=== PATIENT | female | born 1985 | race Caucasian/White ===

== ENCOUNTER 2018-08-21 00:50 | Emergency (ER) | payer SELFPAY ==
[~2018-08-21] VITALS: Ht 165.1 cm; Wt 53.5 kg
--- NOTE | 2018-08-21 01:18 | NUR ---
Pt came in c/o bilateral lower back pain, 5/10 on scale, nausea. States she had abdominal pain earlier but denies it at this time. She is A, O/4, moves all extremities without difficulty, on RA, in no apparent distress. Awaiting to be seen by MD at .
--- NOTE | 2018-08-21 01:23 | NUR ---
Urine sample sent to lab.
[2018-08-21] MEDS ORDERED: IBUPROFEN 400 MG TABLET ONE (01:25)
[2018-08-21] MEDS ORDERED: IBUPROFEN 400 MG TABLET PO ONE (01:30)
[2018-08-21 01:36] LABS: APPEARANCE,URINE SL CLOUDY (CLEAR); BILIRUBIN,URINE NEGATIVE (NEGATIVE); BLOOD, URINE 1+ Ery/uL (NEGATIVE); COLOR,URINE YELLOW (YELLOW); KETONES,URINE 1+ (NEGATIVE); LEUKOCYTE ESTERASE ,URINE NEGATIVE (NEGATIVE); NITRITE, URINE NEGATIVE (NEGATIVE); PROTEIN,URINE NEGATIVE (NEGATIVE); UGLUCOSE NEGATIVE (NEGATIVE); UROBILINOGEN,URINE 0.2 EU/dL (0.2)
--- NOTE | 2018-08-21 01:55 | NUR ---
Pt states her back pain and abdominal discomfort have subsided from 12/20 earlier to 08/22 now.
[2018-08-21 02:00] LABS: BACTERIA,URINE Few /HPF (None Seen); MUCUS,URINE Few /LPF (None Seen); RBC,URINE 0-2 /HPF (0-2); SQUAMOUS EPITHELIAL CELL,UR Few /HPF (None Seen)
[2018-08-21 02:10] VITALS: BP 127/69
--- NOTE | 2018-08-21 02:11 | NUR ---
Patient discharged to home in stable condition. Written and verbal after care instructions and prescription given. Patient verbalizes understanding of instruction. Pt ambulatory with a steady gait
== END 2018-08-21 02:12 | disposition home or self-care (01) ==
LOC: ER 00:55
DX: N94.6 Dysmenorrhea, unspecified (principal); F10.10 Alcohol abuse, uncomplicated; Y90.9 Presence of alcohol in blood, level not specified; Z98.890 Other specified postprocedural states
CPT/HCPCS: 81001; 84703; 87086; 99283; A4606; Z7610; 81000-TC